=== PATIENT | male | born 2000 | race African-American/Black ===

== ENCOUNTER 2022-10-16 10:27 | Emergency (ER) | payer OTHER ==
--- NOTE | 2022-10-16 11:00 | ED Physician Documentation ---
PD HPI CHEST PAIN - Stated complaint Stated Complaint: SOA - Chief complaint Chief Complaint: Trauma Ch/Bk - History obtained from History obtained from: Patient - History of Present Illness Timing - onset: Last night Timing - onset during: Other (wrestling) Timing - details: Abrupt onset, Still present Quality: Pressure, Sharp Location: Substernal, Right chest Radiation: Back Improved by: Rest Worsened by: Inspiration, Movement, Palpation, Position Associated symptoms: Shortness of air Similar symptoms before: Has not had sx before Recently seen: Not recently seen - Additional information Additional information: Previously well 22-year-old Kei bee was wrestling with friends last night when he was contused in the chest on the right side. He is complaining of pain and pain with inspiration. He has pain to palpation as well. He feels it is difficult to get a full deep breath. He has not had this happen to him previously. Late in the visit the patient addresses his complaints of a sore throat for the past month. He states that he can see white ground on his tonsils and he has been gargling regularly and he has not resolved these symptoms. Review of Systems Constitutional: denies: Fever Ears: denies: Ear pain Nose: denies: Congestion Throat: denies: Sore throat Cardiac: reports: Chest pain / pressure. denies: Palpitations, Pedal edema, Ca lf pain Respiratory: reports: Dyspnea. denies: Cough, Wheezing GI: denies: Abdominal Pain, Nausea, Vomiting, Constipation, Diarrhea : denies: Dysuria, Frequency PD PAST MEDICAL HISTORY - Past Medical History Past Medical History: No Cardiovascular: None Respiratory: None Neuro: None Endocrine/Autoimmune: None GI: None : None HEENT: None Psych: None Musculoskeletal: None - Past Surgical History Past Surgical History: No - Present Medications Home Medications: Ambulatory Orders Medication Instructions Recorded Confirmed Azithromycin [Zithromax] 250 mg PO DAILY #6 tablet 10/16/22 HYDROcod/ACETAM 5/325 [Henderson 5/325] 1 - 2 tablet PO Q6H PRN #14 tablet 10/16/22 - Allergies Allergies/Adverse Reactions: Allergies Allergy/AdvReac Type Severity Reaction Status Date / Time No Known Drug Allergies Allergy Verified 10/16/22 10:30 - Social History Does the pt smoke?: No Smoking Status: Never smoker Does the pt drink ETOH?: No Does the pt have substance abuse?: No - Immunizations Immunizations are current?: Yes PD ED PE NORMAL - Vitals Vital signs reviewed: Yes (hypertensive mild ) - General General: Alert and oriented X 3, No acute distress, Well developed/nourished - HEENT HEENT: Atraumatic, PERRL, EOMI, Other (Exam of the pharynx shows 2+ tonsils with crypts and exudate.) - Neck Neck: Supple, no meningeal sign, No bony TTP - Cardiac Cardiac: RRR, No murmur - Respiratory Respiratory: No respiratory distress, Clear bilaterally, Other (chest wall tenderness to the right anterior chest wall above the nipple line. ) - Abdomen Abdomen: Soft, Non tender - Back Back: No CVA TTP, No spinal TTP - Derm Derm: Normal color, Warm and dry, No rash - Extremities Extremities: No deformity, No edema - Neuro Neuro: Alert and oriented X 3, plate grainer apprentice 2-12 intact, No motor deficit, No sensory deficit, Normal speech Eye Opening: Spontaneous Motor: Obeys Commands Verbal: Oriented GCS Score: 15 - Psych Psych: Normal mood, Normal affect Results - Vitals Vitals: Vital Signs - 24 hr 10/16/22 10:30 Temperature 36.7 C Heart Rate 65 Respiratory 16 Rate Blood Pressure 131/87 H O2 Saturation 97 Oxygen O2 Source Room air - Rads (name of study) ribs with PA chest R Relevant Findings:: Prelim report reviewed (Impression: No displaced rib fracture or pneumothorax. No acute cardiopulmonary abnormalities.), EMP independent interpretation of test PD Medical Decision Making - ED course Complexity details: reviewed results, re-evaluated patient, considered differential, d/w patient ED course: 22-year-old male with a chest wall contusion and chest wall pain has no evidence of fracture or pneumothorax on plain film. He rates his pain as a 7 out of 10 at rest and a 10 out of 10 with deep breathing. We have administered 30 of Toradol IM and we will provide the patient with a short course of narcotic pain re liever. In addition the patient appears to have cryptic exudative tonsillitis and he has not had resolution with regular gargling. Today we are giving him a dose of dexamethasone in the emergency department and we will place him on a course of azithromycin. I explained to the patient the appearance of his tonsils and the mainstay of treatment. Departure - Departure Disposition: 01 Home, Self Care Clinical Impression: Tonsillitis Contusion of chest wall Qualifiers: Encounter type: initial encounter Laterality: right Qualified Code(s): S20.211A - Contusion of right front wall of thorax, initial encounter Condition: Stable Instructions: ED Contusion Chest Wall Follow-Up: LEAH Dickson [Provider Group] Prescriptions: HYDROcod/ACETAM 5/325 [Henderson 5/325] 1 - 2 tablet PO Q6H PRN #14 tablet PRN Reason: Pain Azithromycin [Zithromax] 250 mg PO DAILY #6 tablet Comments: Anayeli, today it looks like you have a contusion to your chest wall. We did not find any broken ribs or collapsed lung. This tends to hurt especially with breathing and you really cannot stop breathing. About 5 days after this has happened you may get an increase in your pain. The recommendation for pain control for this type of injury is ibuprofen. (always take this with food) Take this and or Tylenol and if you are not having adequate pain relief with this take the narcotic pain reliever we [facility] to [facility] [place]. In addition it looks like you have not been able to clear your exudative tonsillitis with regular gargling. We are adding in an antibiotic which we have E scribed to the [facility] in [place] as well. The expectation with this treatment is improvement in your sore throat and resolution. It is important to continue to use the gargling as a means to clear the exudate from the tonsils.
--- NOTE | 2022-10-16 11:22 | XRAY Report ---
PROCEDURE: Ribs w/PA Chest RT INDICATIONS: chest wall contusion/pain TECHNIQUE: 2 views of the right ribs were acquired, along with a single view chest. COMPARISON: None. FINDINGS: Surgical changes and devices: None. Bones and chest wall: No fractures or dislocations. No suspicious bony lesions. Overlying soft tis sues appear unremarkable. Lungs and pleura: No pleural effusions or pneumothorax. Lungs appear clear. Mediastinum: Mediastinal contours appear normal. Heart size is normal. IMPRESSION: No displaced rib fracture or pneumothorax. No acute cardiopulmonary abnormalities Reviewed by: David Mccloud MD on 10/16/2022 10:20 AM APRIL Approved by: David Mccloud MD on 10/16/2022 10:20 AM AKJHON Station ID: [id number]
[2022-10-16] MEDS ORDERED: CHERRY SYRUP 10 ML UDC PO ONE (12:01)
[2022-10-16] MEDS ORDERED: DEXAMETHASONE 10 MG/ML VIAL PO STA (12:01)
[2022-10-16] MEDS ORDERED: KETOROLAC 30 MG/ML VIAL IM STA (12:16)
[2022-10-16 12:38] VITALS: BP 116/65
== END 2022-10-16 12:34 | disposition home or self-care (01) ==
LOC: ED 10:27
DX: J03.90 Acute tonsillitis, unspecified (principal); S20.211A Contusion of right front wall of thorax, initial encounter; X58.XXXA Exposure to other specified factors, initial encounter; Y93.72 Activity, wrestling
CPT/HCPCS: 71101; 96372; 99283; 99284; A9270